=== PATIENT | female | born 1985 | race American Indian/Alaskan Native ===

== ENCOUNTER 2017-12-05 10:14 | Outpatient (CLI) | payer OTHER | END 2017-12-05 11:08 | disposition home or self-care (01) | LOC: NST 10:14 | DX: Z34.82 Encounter for supervision of other normal pregnancy, second trimester (principal) ==

== ENCOUNTER 2018-03-13 10:30 | Inpatient (IN) | payer OTHER ==
[~2018-03-13] VITALS: Ht 162.6 cm; Wt 3.6 kg
[2018-04-12] MEDS ORDERED: PRENATAL TABLE1 EAC2 PO (08:28)
== END 2018-04-15 13:36 | DRG 788 ==
LOC: OB/GYN 03-28 10:30 → LDR 04-11 14:43 → OB/GYN 04-12 08:30 → O/R 04-12 08:31 → OB/GYN 04-12 13:02
PROVIDERS: Obstetrics & Gynecology Maternal & Fetal Medicine
PROC: 4A1HXCZ Monitoring of Products of Conception, Cardiac Rate, External Approach (ICD-10-PCS; 2018-04-11)
PROC: 4A033R1 Measurement of Arterial Saturation, Peripheral, Percutaneous Approach (ICD-10-PCS; 2018-04-12)
PROC: 10D00Z1 Extraction of Products of Conception, Low, Open Approach (ICD-10-PCS; principal; 2018-04-12 07:00)
DX: O33.8 Maternal care for disproportion of other origin (principal); O62.1 Secondary uterine inertia; Z3A.40 40 weeks gestation of pregnancy; Z37.0 Single live birth

== ENCOUNTER 2018-04-07 09:13 | Outpatient (CLI) | payer OTHER | END 2018-04-07 10:06 | disposition home or self-care (01) | LOC: NST 09:13 | DX: Z34.03 Encounter for supervision of normal first pregnancy, third trimester (principal) ==

== ENCOUNTER 2018-04-10 09:30 | Outpatient (CLI) | payer OTHER | END 2018-04-10 11:12 | disposition home or self-care (01) | LOC: NST 09:30 | DX: Z34.83 Encounter for supervision of other normal pregnancy, third trimester (principal) ==

== ENCOUNTER 2020-07-28 08:00 | Inpatient (IN) | payer OTHER ==
[~2020-07-28] VITALS: Ht 162.6 cm; Wt 3.2 kg
[~2020-07-28 08:00] MED LIST: PRENATAL TABLE1 EAC2 PO
[2020-07-28] MEDS ORDERED: SYNTHROID112 MCG PO (10:25)
[2020-07-28] MEDS ORDERED: OBTREX DHA COM1 EACH PO (10:25)
[2020-08-07] MEDS ORDERED: OXYC1TAB9 PO (07:47)
[2020-08-07] MEDS ORDERED: KETO10TA2 PO (07:47)
== END 2020-08-07 11:49 | disposition home or self-care (01) | DRG 788 ==
LOC: OB/GYN 08-04 07:00 → O/R 08-04 12:20 → OB/GYN 08-04 12:20
PROVIDERS: ADMIT Obstetrics & Gynecology Maternal & Fetal Medicine; ATTEND Obstetrics & Gynecology Maternal & Fetal Medicine
PROC: 4A1HXFZ Monitoring of Products of Conception, Cardiac Rhythm, External Approach (ICD-10-PCS; 2020-08-04)
PROC: 10D00Z1 Extraction of Products of Conception, Low, Open Approach (ICD-10-PCS; principal; 2020-08-04 07:00)
DX: O65.5 Obstructed labor due to abnormality of maternal pelvic organs (principal); O34.211 Maternal care for low transverse scar from previous cesarean delivery; Z3A.39 39 weeks gestation of pregnancy; Z37.0 Single live birth

== ENCOUNTER 2024-12-28 08:10 | Day surgery (SDC) | payer OTHER ==
[2024-12-24 08:35] VITALS: BP 113/58
[2024-12-24 08:57] LABS: URINE APPEARANCE Clear; URINE BILIRRUBIN Negative (NEGATIVE); URINE BLOOD Large; URINE COLOR Yellow; URINE GLUCOSE Negative (NEGATIVE); URINE KETONE Negative (NEGATIVE); URINE LEUKOCYTE Negative; URINE NITRATE Negative; URINE PROTEIN Negative (NEGATIVE); URINE UROBILINOGEN 0.2 E.U./dl
[2024-12-24 09:00] LABS: BASO % 0.5 % (0.1-1.2); EOS # 0.18 (0.04-0.54); EOS % 2.1 % (0.7-7.0); LYMPH # 1.58 (1.18-3.74); LYMPH % 18.2 % (19.3-53.1); MEAN PLATELET VOLUME 9.40 fl (9.4-12.4); MONO # 0.39 (0.24-0.82); MONO % 4.5 % (4.7-12.5); NEUT # 6.45 (1.56-6.13); NEUT % 74.4 % (34.0-71.1); RED CELL DISTRIBUTION WIDTH 15.4 % (11.6-14.4)
[2024-12-24 09:01] LABS: URINE BACTERIA 459.5 uL (0.0-1933); URINE EPITHELIAL CELLS 43.3 uL (0.0-38.8); URINE RBC 121.1 uL (0.0-20.8); URINE WBC 5.8 uL (0.0-23.2)
[2024-12-24 09:24] LABS: INR 0.96
[2024-12-24 09:36] LABS: BUN CREA RATIO 21.0 (7.0-25.0); CREATININE SERUM 0.76 mg/dL (0.55-1.02); GFR 85.63; GLUCOSE FASTING 90.0 mg/dL (65-100); OSMOLALITY SERUM 280.0 MOSM/KG (275-295)
[2024-12-24 09:39] LABS: URINE CAST 0.00 uL (0.0-1.40)
[~2024-12-28] VITALS: Ht 162.6 cm; Wt 57.2 kg
[~2024-12-28 08:10] MED LIST changes: +KETO10TA2 PO; +OBTREX DHA COM1 EACH PO; +OXYC1TAB9 PO; +SYNTHROID112 MCG PO
[2024-12-28] MEDS ORDERED: POVIDONE-IODINE 118 ML BOTT TOP ONE (09:45)
[2024-12-28] MEDS ORDERED: CEFAZOLIN SODIUM 1,000 MG VIAL IV ONE (09:45)
[2024-12-28] MEDS ORDERED: LIDOCAINE HCL 1%/EPINEPHRINE 20ML VIAL IJ ONE (09:45)
[2024-12-28] MEDS ORDERED: EPINEPHRINE HCL/PF 1 MG/ML AMPUL IR ONE (10:00)
[2024-12-28] MEDS ORDERED: CIPROFLOXACIN HCL 0.175 MG/DR DROPS OTIC ONE (10:45)
[2024-12-28] MEDS ORDERED: CEPHALEXIN500 MG PO (11:01)
[2024-12-28] MEDS ORDERED: CIPROFLOXACIN2.5 ML OTIC (11:01)
== END 2024-12-28 13:35 | disposition home or self-care (01) ==
LOC: CIR.AMB 08:10
PROVIDERS: ATTEND Otolaryngology Otology & Neurotology
DX: H72.01 Central perforation of tympanic membrane, right ear (principal); H90.11 Conductive hearing loss, unilateral, right ear, with unrestricted hearing on the contralateral side